=== PATIENT | female | born 1980 | race Two or more races ===

== ENCOUNTER 2016-08-23 13:04 | Observation (INO) | payer MEDICAID ==
[~2016-08-23] VITALS: Ht 160 cm; Wt 70.8 kg
[2016-08-23] VITALS (9 sets, daily range): BP systolic 93–130; BP diastolic 54–97; BMI 23.9
[2016-08-23 14:00] LABS: COLOR PINK (YELLOW)
[2016-08-23 14:01] LABS: APPEARANCE HAZY (CLEAR); BACTERIA FEW /hpf (NONE SEEN); BILIRUBIN NEGATIVE (NEGATIVE); EPITHELIAL CELLS OCC /hpf (0-5); GLUCOSE NEGATIVE (NEGATIVE); KETONE NEGATIVE (NEGATIVE); LEUKOCYTE ESTERASE TRACE (NEGATIVE); NITRITE NEGATIVE (NEGATIVE); PROTEIN TRACE mg/dL (NEGATIVE); RED CELLS - URINE 25-50 /hpf (0-5); SPECIFIC GRAVITY 1.005 (1.005-1.020); UROBILINOGEN NORMAL (NORMAL); WHITE CELLS - URINE 0-5 /hpf (0-5)
[2016-08-23 14:13] LABS: HCG SERUM NEGATIVE (NEGATIVE)
[2016-08-23 14:19] LABS: ALBUMIN 3.5 g/dL (3.4-5.0); ALKALINE PHOSPHATASE 118 U/L (46-116); ALT (SGPT) 18 U/L (10-68); BILIRUBIN - TOTAL 0.13 mg/dL (0.2-1.3); CALC OSMOLALITY 286 mosm/kg (275-300); CALCIUM 9.5 mg/dL (8.5-10.1); CARBON DIOXIDE 25.5 mmol/L (21.0-32.0); CHLORIDE - SERUM 108 mmol/L (98-107); CREATININE - SERUM 0.7 mg/dL (0.6-1.3); GLUCOSE 113 mg/dL (74-106); POTASSIUM - SERUM 4.2 mmol/L (3.5-5.1); PROTEIN - SERUM 7.8 g/dL (6.4-8.2); SODIUM 144 mmol/L (136-145); UREA NITROGEN 11 mg/dL (7-18); eGFR NON AFRICAN AMERICAN > 90 mL/min (90-120)
[2016-08-23 14:22] LABS: BASOPHILS 0.6 % (0.0-2.0); EOSINOPHILS 0.9 % (0-7); HEMATOCRIT 44.6 % (36.0-48.0); HEMOGLOBIN 14.7 g/dL (12-16); IMMATURE GRANULOCYTES 0.2 % (0-5); LYMPHOCYTES 14.2 % (15-50); MCH 30.8 pg (26.0-34.0); MCV 93.5 fL (80.0-100.0); MEAN PLATELET VOLUME 10.1 fL (7.4-10.4); MONOCYTES 4.9 % (2-11); NEUTROPHILS 79.2 % (40-80); PLATELET COUNT 315 10x3/uL (130-400); RBC 4.77 10x6/uL (4.00-5.40); RDW 13.2 % (11.5-14.5); WBC 10.4 10x3/uL (4.8-10.8)
[2016-08-23 14:30] LABS: UDS - AMPHET NEGATIVE QUAL (NEGATIVE); UDS - BARB NEGATIVE QUAL (NEGATIVE); UDS - BENZO NEGATIVE QUAL (NEGATIVE); UDS - COCAINE NEGATIVE QUAL (NEGATIVE); UDS - METH NEGATIVE QUAL (NEGATIVE); UDS - OPIATE NEGATIVE QUAL (NEGATIVE); UDS - PCP NEGATIVE QUAL (NEGATIVE); UDS - THC POSITIVE QUAL (NEGATIVE)
--- NOTE | 2016-08-23 15:00 | NUR ---
PATIENT ARRIVED TO THE FLOOR FROM THE ER VIA CART. ASSISTED TO GET COMFORTABLE IN BED. ASSESSMENT COMPLETED. PATIENT IS VERY TEARFUL. SHE HAS ATTEMPTED SUICIDE IN THE PAST. PATIENT STATED THAT SHE IS VERY DEPRESSED. SHE HAS STOPPED MOST OF HER MEDICATIONS. THESE ARE LISTED ON THE HOME MED REC SHEET. THE ONES THAT SHE HAS TAKEN, SHE ADMITS TO NOT BEING CONSISTENT IN TAKING. PATIENT LEFT IN RIGHT LATERAL POSITION WITH CALL LIGHT IN REACH. NO NEEDS VOICED.
[2016-08-23] MEDS ORDERED: KLONOPIN1 MG PO (15:15)
[2016-08-23] MEDS ORDERED: BACLOFEN10 MG PO (15:16)
[2016-08-23] MEDS ORDERED: HYDROCODONE-APA1 TAB PO (15:16)
[2016-08-23] MEDS ORDERED: OMEPRAZOLE20 M1 PO (15:17)
[2016-08-23] MEDS ORDERED: DESERYL100 MG PO (15:17)
[2016-08-23] MEDS ORDERED: CYMBALTA60 MG PO (15:18)
[2016-08-23] MEDS ORDERED: LITHIUM CARBON300 MG PO (15:19)
--- NOTE | 2016-08-23 15:51 | NUR ---
PATIENT C/O PAIN TO HER BACK 11/12. EXPLAINED TO HER THAT DR COOPER WOULD PROBABLY NOT ALLOW US TO GIVE HER ANYTHING FOR THIS, BUT I WOULD ASK. SPOKE WITH DR COOPER AND HE STATED "NO".
--- NOTE | 2016-08-23 18:52 | NUR ---
PATIENTS MOM HERE FOR VISITATION. SHE HAS EXPRESSED THAT SHE DOES NOT WANT HER TO GO TO A DRUG REHAB. SHE IS REQUESTING THAT SHE GO TO A PSYCH [facility]. EXPLAINED THAT THE PSYCH DOCTOR WOULD COME AND SEE HER TOMORROW, AND IT WOULD BE UP TO HIM IF SHE NEEDED INPATIENT PLACEMENT FOR PSYCH. SHE WAS SLIGHTLY UPSET THAT SHE WAS NOT ABLE TO STAY AT BEDSIDE WITH HER DAUGHTER. SHE STATED "I'M USE TO ALL THE OTHER HOSPITALS, THEY HAVE ALWAYS LET ME STAY". AGAIN EXPLAINED THAT IF SHE WERE ON THE FLOOR, THAT WOULD BE OK, BUT SHE IS IN THE ICU WHICH IS A LOCKED UNIT AND WE HAVE REASONS THAT WE NEED THE VISITING HOURS. SHE STATED HER UNDERSTANDING.
--- NOTE | 2016-08-23 19:20 | NUR ---
SHIFT ASSESSMENT COMPLETE, PT IS ALERT AND ORIENTED, ON RA WITH 98% O2 SAT, LUNGS CLEAR IN ALL LOBES, S1S2, CM-NSR, PATENT RIGHT WRIST PIV...SEE FLOW SHEET...ABDOMEN IS SOFT AND ROUND WITH ACTIVE BS, BSC AT BEDSIDE, ALL PPP, VSS, CALL LIGHT IN REACH
--- NOTE | 2016-08-23 21:10 | NUR ---
NO VISITORS AT THIS TIME, PT AWAKE WATCHING TV, WILL CON'T TO MONITOR
--- NOTE | 2016-08-23 23:05 | NUR ---
REASSESSMENT COMPLETE, NO CHANGES NOTED, PT RESTING AT THIS TIME, NO NEEDS NOTED, VSS, CALL LIGHT IN REACH
[2016-08-24] VITALS (16 sets, daily range): BP systolic 93–113; BP diastolic 52–79; Ht 160 cm; Wt 70.8 kg
--- NOTE | 2016-08-24 01:05 | NUR ---
PT RESTING AT THIS TIME, WILL CON'T TO MONITOR
--- NOTE | 2016-08-24 03:00 | NUR ---
REASSESSMENT COMPLETED PER FLOW SHEETS. NO ACUTE SIGNS OF DISTRESS NOTED AT THIS TIME. VSS. CPOC
[2016-08-24 04:15] LABS: BASOPHILS 0.6 % (0.0-2.0); EOSINOPHILS 3.2 % (0-7); HEMATOCRIT 39.1 % (36.0-48.0); HEMOGLOBIN 12.4 g/dL (12-16); IMMATURE GRANULOCYTES 0.1 % (0-5); LYMPHOCYTES 37.7 % (15-50); MCH 30.2 pg (26.0-34.0); MCHC 31.7 g/dL (31.0-37.0); MCV 95.4 fL (80.0-100.0); MEAN PLATELET VOLUME 10.1 fL (7.4-10.4); MONOCYTES 5.5 % (2-11); NEUTROPHILS 52.9 % (40-80); PLATELET COUNT 279 10x3/uL (130-400); RDW 13.4 % (11.5-14.5); WBC 8.8 10x3/uL (4.8-10.8)
[2016-08-24 04:54] LABS: ALBUMIN 2.7 g/dL (3.4-5.0); ALKALINE PHOSPHATASE 86 U/L (46-116); ALT (SGPT) 15 U/L (10-68); CALC OSMOLALITY 279 mosm/kg (275-300); CALCIUM 8.3 mg/dL (8.5-10.1); CARBON DIOXIDE 26.8 mmol/L (21.0-32.0); CHLORIDE - SERUM 107 mmol/L (98-107); CREATININE - SERUM 0.7 mg/dL (0.6-1.3); GLUCOSE 98 mg/dL (74-106); POTASSIUM - SERUM 4.1 mmol/L (3.5-5.1); PROTEIN - SERUM 6.2 g/dL (6.4-8.2); SODIUM 141 mmol/L (136-145); UREA NITROGEN 11 mg/dL (7-18); eGFR NON AFRICAN AMERICAN > 90 mL/min (90-120)
--- NOTE | 2016-08-24 07:00 | NUR ---
REPORT RECEIVED. ASSESSMENT COMPLETED. PATIENT DENIES NEEDS AT THIS TIME. WAS NOT CARMINE COOPERATIVE FOR THE ASSESSMENT. MOANED AT ME INSTEAD OF ANSWERING MY QUESTIONS. HAD TO EXPLAIN THAT I NEEDED HER TO ACTUALLY ANSWER THE QUESTIONS. PATIENT COVERED HERSELF AND ROLLED INTO A POSITION ON HER LEFT SIDE WHEN ASSESSMENT COMPLETED.
--- NOTE | 2016-08-24 14:42 | NUR ---
PATIENT WANTS TYLENOL. CALL PLACED TO DR COOPER ON MED 2. HE WILL CALL BACK.
--- NOTE | 2016-08-24 14:44 | NUR ---
SPOKE WITH DR COOPER. HE STATED HE WOULD PUT THE ORDER IN.
--- NOTE | 2016-08-24 16:22 | NUR ---
JAISON BLACKWOOD met with patient in ICU @1300. Patient is in agreement to go into [facility]. States she has been very depressed to the point that she is unable to get out of bed all day. Patient is tearful. Talks about her 3 children, ages 20, 14, 13. States she has had a lot of anxiety, depression, PTSD symptoms that her family does not understand. States her 13 y/o daughter has been in psychiatric treatment and is now doing better. 1400 spoke to Hedy with [facility] and provided required information for transfer. Faxed information multiple times to #[phone], then, then refaxed to Hedy [phone] multiple times. Spoke to Kim with [facility] @ [phone], provided additional information re-faxed information, as none has been received. Contacted [phone], states [facility] has not received information, refaxed. @[phone] contacted [facility] again, [facility] fax is out of paper. Re-faxed and received a confirmation. Provided CM phone and ICU contact/nurse info. Teressa Magana RN, CM
--- NOTE | 2016-08-24 17:20 | NUR ---
SPOKE WITH MINGO SLOAN. PATIENT HAS BEEN ACCEPTED BY [facility]. SHE WILL GO TO ROOM 4011. RIGHT NOW THEY ARE WAITING ON THEIR ORDERS FROM DR ALVARADO AND WILL BE IN CONTACT WITH US WHEN THEY HAVE THEM. WILL CALL DR COOPER FOR ORDERS.
--- NOTE | 2016-08-24 17:23 | NUR ---
DR COOPER PAGED THROUGH THE ANSWERING SERVICE.
--- NOTE | 2016-08-24 18:24 | NUR ---
REPORT CALLED TO ELVIN HERNANDEZ RN AT [facility]. [employer]ER INSIGHT MANAGER CALLED TO SIGN TRANSFER AUTHORIZATION. [facility] CALLED FOR TRANSFER.
--- NOTE | 2016-08-24 19:05 | NUR ---
HELGA HERE TO TAKE PATIENT TO [facility]. ROOM MATE HAS ALL HER BELONGINGS EXCEPT FOR 3 PIERCINGS, ONE TO HER LIP AND 2 TO HER NOSE THAT SHE SAYS SHE IS UNABLE TO REMOVE.
--- NOTE | 2016-08-25 03:46 | CN ---
PATIENT NAME:PRERNA CHRISTIANSON MEDICAL RECORD: [id number] : 76 LOCATION:[id number] ADMIT DATE: 08/23/16 ACCOUNT: [id number] CONSULTING PHYSICIAN: LISSA CRAFT III, MD REFERRING PHYSICIAN: CLIVE COOPER MD DATE OF CONSULTATION: 08/24/2016 FINDINGS: A 36-year-old female, who has a past history of bipolar disorder, depressed type. The patient had overdosed on trazodone. She has a history of several previous suicide attempts. The patient had been followed through [facility], but became dissatisfied with her care there. She states on interview that she had plans to go to another outpatient treatment center, but had not followed through on this at this point. The patient has a number of ongoing stressors including family issues. MENTAL STATUS: On exam, the patient is very pleasant. Mood is dysphoric. She appears to be in some physical discomfort. She has past history of severe headaches. Affect is rather constricted. Speech is low in volume, but otherwise fluent. Content of thought is positive for recent suicidal ideation. Sensorium shows only minor concentration difficulties. IMPRESSION: AXIS I: Bipolar disorder -- depressed, status post overdose. PLAN: Recommend inpatient psychiatric treatment when the patient is medically stable. TRANSINT:[id number] Voice Confirmation ID: [id number] DOCUMENT ID: [id number] LISSA CRAFT III, MD at 0346 CC: [id number] DICTATION DATE: 08/24/16 1319 PENSION EXAMINER: 08/24/16 1346 DIS IN 08/24/16 [place] [id number] [place] [phone]
== END 2016-08-24 19:07 | disposition short-term general hospital (02) ==
LOC: D.ER 13:04 → D.ICU 14:17 → OBSVTIME 14:17 → D.ICU 08-24 19:07
PROVIDERS: Emergency Medicine; ADMIT Family Medicine
DX: T43.212A Poisoning by selective serotonin and norepinephrine reuptake inhibitors, intentional self-harm, initial encounter (principal); F12.10 Cannabis abuse, uncomplicated; K21.9 Gastro-esophageal reflux disease without esophagitis; F31.30 Bipolar disorder, current episode depressed, mild or moderate severity, unspecified; R45.851 Suicidal ideations